=== PATIENT | female | born 1970 | race African-American/Black ===

== ENCOUNTER 2019-10-24 10:50 | Emergency (ER) | payer MEDICAID ==
[~2019-10-24] VITALS: Ht 165.1 cm; Wt 74.0 kg
[2019-10-24] MEDS ORDERED: SODIUM CHLORIDE 0.9% 1,000 ML IV ONE (16:20)
[2019-10-24] MEDS ORDERED: KETOROLAC 30MG/ML VIAL IV STA (16:20)
[2019-10-24] MEDS ORDERED: ONDANSETRON HCL 4MG/2ML INJ IV STA (16:20)
[2019-10-24 17:00] VITALS: BP 143/80
[2019-10-24 17:16] LABS: CHLORIDE 106 mEq/L (98-107)
[2019-10-24 17:26] LABS: BASOPHILS % 0.4 % (0.0-2.0); EOSINOPHILS % 0.2 % (0.0-5.0); HEMOGLOBIN. 14.4 g/dL (12.0-16.0); LYMPHOCYTES % 41.6 % (20.0-50.0); MEAN CORPUSCULAR HEMOGLOBIN 30.4 pg (28.0-32.0); MEAN CORPUSCULAR VOLUME 90.7 fL (81.0-99.0); MEAN PLATELET VOLUME 10.6 fl (7.4-10.4); MONOCYTES % 11.6 % (2.0-8.0); NEUTROPHILS % 46.2 % (40.0-76.0); PLATELET 155 x1000/uL (130-400); RED BLOOD CELL COUNT 4.74 mill/uL (4.2-5.4); RED CELL DISTRIBUTION WIDTH 12.8 % (11.6-14.6)
[2019-10-24] MEDS ORDERED: MAGNESIUM CITRATE 300ML SOLUTION PO ONE (19:45)
== END 2019-10-24 20:38 | disposition home or self-care (01) ==
LOC: ER 10:50
DX: R10.11 Right upper quadrant pain (principal); K59.00 Constipation, unspecified
CPT/HCPCS: 36415; 74176; 80053; 83690; 85025; 96361; 96374; 96375; 99284; J1885; J2405; J7030

== ENCOUNTER 2020-03-04 13:40 | Emergency (ER) | payer MEDICAID ==
[~2020-03-04] VITALS: Ht 165.1 cm; Wt 73.0 kg
[2020-03-04] MEDS ORDERED: SODIUM CHLORIDE 0.9% 1,000 ML IV ONE (15:11)
[2020-03-04] MEDS ORDERED: ONDANSETRON HCL 4MG/2ML INJ IV STA (15:11)
[2020-03-04 15:37] LABS: CLARITY URINE CLOUDY (CLEAR); COLOR URINE DARK YELLOW (YELLOW); KETONES URINE 1+ (NEGATIVE); LEUKOCYTE ESTERASE URINE TRACE (NEGATIVE); NITRITE URINE NEGATIVE (NEGATIVE); OCCULT BLOOD URINE NEGATIVE (NEGATIVE); PROTEIN URINE TRACE (NEGATIVE); SPECIFIC GRAVITY URINE 1.027 (1.005-1.030)
[2020-03-04] MEDS ORDERED: KETOROLAC 30MG/ML VIAL IV ONE (15:45)
[2020-03-04 15:48] LABS: HEMOGLOBIN. 13.3 g/dL (12.0-16.0); MEAN CORPUSCULAR HEMOGLOBIN 30.9 pg (28.0-32.0); MEAN CORPUSCULAR VOLUME 90.5 fL (81.0-99.0); MEAN PLATELET VOLUME 9.8 fl (7.4-10.4); PLATELET 136 x1000/uL (130-400); RED BLOOD CELL COUNT 4.31 mill/uL (4.2-5.4); RED CELL DISTRIBUTION WIDTH 13.2 % (11.6-14.6)
[2020-03-04 15:50] LABS: CHLORIDE 107 mEq/L (98-107)
[2020-03-04] MEDS ORDERED: POTASSIUM CHLORIDE 20MEQ TABLET SR PO ONE (16:15)
[2020-03-04] MEDS ORDERED: FLUCONAZOLE 100MG TABLET PO ONE (17:30)
[2020-03-04 17:41] LABS: PLATELET ESTIMATE NORMAL
[2020-03-04] MEDS: FLUCONAZOLE 150MG TABLET PO NR ×2 (17:47→17:54)
[2020-03-04 17:54] VITALS: BP 100/69
== END 2020-03-04 17:58 | disposition home or self-care (01) ==
LOC: ER 13:40
DX: R10.84 Generalized abdominal pain (principal); B37.3 Candidiasis of vulva and vagina
CPT/HCPCS: 36415; 71045; 76705; 80053; 81003; 81025; 83690; 85025; 93005; 96361; 96374; 96375; 99285; J1885; J2405; J7030

== ENCOUNTER 2022-10-24 14:25 | Emergency (ER) | payer MEDICAID ==
[~2022-10-24] VITALS: Ht 167.6 cm; Wt 73.0 kg
[2022-10-24 14:28] VITALS: BP 120/66
[2022-10-24] MEDS ORDERED: IBUPROFEN 600MG TABLET PO STA (14:35)
[2022-10-24] MEDS ORDERED: IBUP-2029 MT (15:40)
== END 2022-10-24 16:34 | disposition home or self-care (01) ==
LOC: ER 14:25
DX: R51.9 Headache, unspecified (principal); M19.042 Primary osteoarthritis, left hand; M19.041 Primary osteoarthritis, right hand
CPT/HCPCS: 73130; 99284